=== PATIENT | male | born 1960 | race African-American/Black ===

== ENCOUNTER 2023-05-21 06:17 | Day surgery (SDC) | payer OTHER, SELFPAY ==
[2023-05-21] VITALS (12 sets, daily range): BP systolic 96–139; BP diastolic 59–97; PULSE 57–75; RESP 15–20; TEMP 36–36.5; O2SAT 100; BMI 25.0
--- NOTE | 2023-05-21 07:00 | DI.RAD_ITS ---
Exam(s) XR HIP LT IN OR EXAM: XR HIP LT IN OR CLINICAL HISTORY: Osteoarthritis of left hip. TECHNIQUE: 2D digital imaging was performed. COMPARISON: No exams were available for comparison FINDINGS: Intraoperative fluoroscopy provided for left hip arthroplasty. See procedure report for details. Total fluoroscopy time 49 seconds. IMPRESSION: Radiation exposure index/cumulative dose: Allenpascual= 5.2705 mGy DATA REPOSITORY: RADIATION DOSE DELIVERED:
--- NOTE | 2023-05-21 07:07 | W.PREOPHP ---
Assessment and Plan Assessment and plan (1) Osteoarthritis of left hip: Status: Acute Assessment and plan: Martínez is an active 62-year-old male who is here today for left hip replacement. Please see the previous office note for complete detailed history. Once again, I had a discussion in regards to surgical replacement of the hip. I reviewed the basic details of the rehabilitation after hip replacement. I also went over some of the potential complications. These include but are not limited to bleeding, infection, pain, stiffness, weakness, damage to nerves (especially the lateral femoral cutaneous nerve), damage to vessels, damage to muscle and tendon, fracture, leg length inequality, wound healing complications, instability, dislocation, and blood clot. Questions were answered. After a review of the presented information and risks, Martínez desired to proceed. History of Present Illness History of Present Illness Chief Complaint: Left hip pain Narrative: Martínez is a 62-year-old active male who has known arthritis of the left hip. Please the previous office note for complete detailed history. He presents today for his hip replacement. He has no major medical issues. He takes no routine medications. He denies any current chest pain or shortness of breath. He has had no issue with previous surgery or anesthesia. He is primary limited by lack of motion and pain within the left hip. He denies any significant limb length discrepancy. Review of Systems All systems reviewed & are unremarkable except as noted in HPI and below PFSH All Active Problems Osteoarthritis of left hip (Acute) Medical History Sleep apnea Surgical History Hx of colonoscopy Hx of exploratory laparotomy gastroenteritis 2018 Hx of foot surgery Social History Smoking/Tobacco Use Status: Never Smoking risk assessment performed?: Yes Alcohol Intake: current Alcohol Intake frequency: holidays/special occasions only Drug use: Never Substance use type: does not use Housing: house Do you feel safe at home: Yes Do you feel safe in your relationship?: Yes Meds Allergies and Home Medications Allergies Allergy/AdvReac Type Severity Reaction Status Date / Time No Known Allergies Allergy Verified 05/21/23 06:34 Home Medications Medication Instructions Recorded Confirmed Type Unknown [No Known Home Meds] 04/15/23 05/20/23 History Exam Resp Effort & Inspection: normal respiratory effort Auscultation: clear to auscultation bilaterally Cardio Rate: regular rate Rhythm: regular rhythm Results Imaging Imaging Studies: Previous x-rays of the left hip were reviewed. These demonstrate severe arthritis of the left hip with loss of joint space and large osteophyte surrounding the femoral acetabular joint.
[2023-05-21] MEDS: Acetaminophen 500 MG TAB 1000 MG PO (07:09)
[2023-05-21] MEDS: Celecoxib 200 MG CAP 400 MG PO (07:09)
[2023-05-21] MEDS: Lactated Ringers 1,000 ML 80 ML IV (07:20)
--- NOTE | 2023-05-21 07:22 | W.ANESPRE ---
General Info Date of Service Date Performed: 05/21/23 Height: 5 ft 10 in Weight: 79.1 kg Body Mass Index (BMI): 25.0 Surgical Procedure: Operation Date: 05/21/23 07:50 Proposed Procedure Side Surgeon p Hip Total Hip Anterior, ACTIS (High), 62/64 Cup Left Ryan Zacarias MD Actual Procedure Side Surgeon p Hip Total Hip Anterior, ACTIS (High), 62/64 Cup Left Ryan Zacarias MD Pre-Op Diagnosis Post-Op Diagnosis Osteoarthritis of left hip Meds Allergies and Home Medications Allergies Allergy/AdvReac Type Severity Reaction Status Date / Time No Known Allergies Allergy Verified 05/21/23 06:34 Home Medication Medication Instructions Recorded acetaminophen 500 mg tablet 1,000 mg PO Q8H PRN pain #90 tabs 05/21/23 aspirin 81 mg tablet,delayed 81 mg PO BID 30 days #60 tabs 05/21/23 release celecoxib 200 mg capsule (Celebrex) 200 mg PO BID PRN #60 caps 05/21/23 dexamethasone 4 mg tablet 4 mg PO DAILY #2 tabs 05/21/23 docusate sodium 100 mg capsule 100 mg PO BID #30 caps 05/21/23 (Colace) oxycodone 5 mg tablet 5 mg PO Q6H PRN #12 tabs 05/21/23 pantoprazole 40 mg tablet,delayed 40 mg PO DAILY #14 tabs 05/21/23 release Current Visit Medications: Current Medications Generic Name Dose Route Start Last Admin Trade Name Freq PRN Reason Stop Dose Admin Acetaminophen 1,000 mg 05/21/23 06:00 05/21/23 07:09 Acetaminophen 500 Mg Tab PO 05/21/23 16:00 1,000 mg PREOP PIO Administration Celecoxib 400 mg 05/21/23 06:00 05/21/23 07:09 Celecoxib 200 Mg Cap PO 05/21/23 16:00 400 mg PREOP PIO Administration Hydromorphone HCl 0.5 mg 05/21/23 07:14 Hydromorphone 2 Mg/Ml Syr IVP 06/20/23 07:13 Q2H PRN PRN Tranexamic Acid 1,000 mg/ 60 mls @ 360 mls/hr 05/21/23 06:00 Sodium Chloride IV 05/21/23 16:00 PREOP PIO Ringer's Solution 1,000 mls @ 80 mls/hr 05/21/23 06:00 IV 05/30/23 23:59 INFUSION PIO Cefazolin Sodium/Dextrose 2 gm in 50 mls @ 100 mls/hr 05/21/23 06:00 Ancef Duplex IVPB 05/21/23 23:59 PREOP PIO Cefazolin Sodium/Dextrose 1 gm in 50 mls @ 100 mls/hr 05/21/23 08:00 Ancef Duplex IVPB 05/22/23 00:29 Q8H PIO IV Miscellaneous Supplies 1 each 05/21/23 06:00 Iv Access IV 05/30/23 23:59 DIRECTED PIO Ondansetron HCl 4 mg 05/21/23 07:14 Ondansetron 4 Mg/2 Ml Vial IVP 06/20/23 07:13 Q6H PRN PRN Nausea Oxycodone HCl 0 mg 05/21/23 07:14 Oxycodone 5 Mg Tab PO 06/20/23 07:13 Q3H PRN PRN Pain Sodium Chloride 0 ml 05/21/23 06:00 Normal Saline Flush 10 Ml Syr IV 05/30/23 23:59 PRN PRN Sodium Chloride 0 ml 05/21/23 06:00 Normal Saline 10 Ml Vial IJ 05/30/23 23:59 DIRECTED PRN Sterile Water 0 ml 05/21/23 06:00 Water,Injection,Sterile 10 Ml Vial IJ 05/30/23 23:59 DIRECTED PRN PFSH Active Problems Active Problems: Problem Status Onset Code Osteoarthritis of left hip M16.12 Medical History Medical History Sleep apnea Surgical History Surgical History Hx of colonoscopy Hx of exploratory laparotomy gastroenteritis 2018 Hx of foot surgery Tobacco Smoking/Tobacco Use Status: Never Alcohol Alcohol Intake: current Alcohol intake frequency: holidays/special occasions only Substance Use Substance use: Never Substance use type: does not use Details: alcohol: t-2, half beer Vital Signs and Lab Results Vital Signs Most Recent Vital Signs in EMR: Most Recent Vital Signs Temp Pulse Resp BP Pulse Ox 36.5 C 71 15 128/97 H 100 05/21/23 07:00 05/21/23 07:00 08/22/23 07:00 05/21/23 07:00 05/21/23 07:00 Lab Results Blood Type / Crossmatch: No Data to Display Complete Blood Count: No Data to Display Complete Metabolic Panel: No Data to Display Liver Function Panel: No Data to Display Coagulation Panel: No Data to Display Cardiac Panel: No Data to Display Arterial Blood Gas: No Data to Display Venous Blood Gas: No Data to Display Pancreas Panel: No Data to Display Thyroid Panel: No Data to Display Infectious Disease: No Data to Display Blood Cultures: No Data to Display Toxicology Panel: No Data to Display Anesthesia Assessment and Plan Anesthesia History Personal History: No History of Anesthesia Complications Family History: No Family History of Anesthesia Complications Exercise Tolerance Exercise Tolerance: Metabolic Equivalents>4 Pertinent Negatives Pertinent Negatives: No Major Cardiovascular Symptoms or Complaints and No Major Pulmonary Symptoms or Complaints Cardiac & Pulmonary Exam Cardiac Exam: Normal S1/S2 Heart Sounds Pulmonary Exam: Clear Bilateral Breath Sounds Cardiac and Pulmonary Comment:: Sleep apnea, no device or machine. Not tolerated. Implantable Cardiac Device Does patient have a Pacemaker or an ICD?: No Airway Exam Known Difficult Airway: No Mallampati Class: 2 Mouth Opening: Normal (> 3cm) Thyromental Distance: Greater than 3 cm Neck Range of Motion: Full ROM Neck Circumference: Normal Teeth Condition: Normal Dentition ASA Classification ASA Score: ASA 2 Emergency Case?: No NPO Status NPO Status: NPO Clears >2 hours, Solids >8 hours Anesthesia Plan Resuscitation Status: Full Code Anesthesia Technique: Spinal Anesthesia Airway Planned: Natural Airway Monitors Used: Standard Monitors
[2023-05-21] MEDS: ceFAZolin 2 GM/50 ML BAG IVPB (08:28)
--- NOTE | 2023-05-21 10:25 | ROE_ITS ---
Date of service: 05/21/23 Time of Service: 10:00 Operative Note Operative Note DATE OF PROCEDURE: 05/21/23 PRE-OP DIAGNOSIS: Left Hip Osteoarthritis POST-OP DIAGNOSIS: same PROCEDURE: Left Anterior Total Hip Arthroplasty with Intraoperative Navigation SURGEON: Ryan Zacarias HEAD OF CYTOGENETICS: Odilia Henderson ANESTHESIA TYPE: Spinal Refer to Anesthesia Record ESTIMATED BLOOD LOSS: 50 PATHOLOGY: none sent TOURNIQUET TIME: 0 COMPLICATIONS: None Patient was transported to: PACU Patient's condition: stable Implants: 1. Depuy [place] Acetabular Component, 58mm 2. Depuy Acetabular Liner, [id number] 3. Depuy Actis High Collared Femoral Stem, Size 7 4. Depuy Altrx Ceramic Femoral Head, Size 36+5mm Indications: I have seen Martínez in clinic for symptoms of hip arthritis, confirmed with radiographic findings. He has exhausted nonoperative methods and was having significant limitations in daily function and desired better function and less pain. I discussed the technical details of a hip replacement. I explained the risks of the procedure to include, but not limited to, bleeding, infection, pain, stiffness, fracture, damage to nerves and vessels, damage to muscles and tendons, loosening, instability, leg length inequality, need for repeat procedure, blood clot and cardiopulmonary demise. Despite these risks, Martínez elected to proceed. Findings: There was significant signs of arthritis throughout the hip with large osteophytes about the femoral neck and acetabulum. Procedure Description: Martínez was greeted in the preoperative holding area where the correct side was identified and marked. The consent was reviewed with the patient and signed. The history and physical was updated. All questions were answered. She was taken back to the operating room. A spinal anesthestic was then administered. The feet were wrapped with cast padding and Coban and then placed into the boot liners and then into the boots. Care was taken to protect the skin and make sure the heels were fully down and the boots were stable. The patient was then positioned onto the HANA table. Both legs were held in a neutral position. SCDs were applied. The patient was then slid down onto a peroneal post. Prophylactic antibiotics in the form of Cefazolin were administered. 1g of Tranxemic Acid was given intravenously within 30 minutes of incision. The left leg was then prepped with Chloraprep and draped in a standard fashion. A second prep with Chloraprep was performed prior to placement of a shower-curtain type drape with Iodine impregnated skin p rotection. A timeout to confirm correct identity, side and site, procedure, allergies, anesthesia, and medical concerns was performed. An obliquely oriented incision was made starting lateral to the ASIS and running distal over the Tensor Fascia Annemarie (TFL) muscle belly toward the fibular head, approximately 10cm. The skin and soft tissue was dissected sharply, through Jhonathan?s fascia, and to the fascia of the TFL. With the fascia and superior border of the IT band identified, the fascia was incised with a new knife just above any perforators from the IT band. The TFL muscle belly was bluntly dissected away from the fascia and moved laterally. The fat between TFL and rectus was identified to ensure the dissection was not within the TFL. Blunt dissection created space between abductors and the capsule and retractor was placed over the lateral femoral neck. The fibers of the rectus femoris tendon were identified and these were freed from the anterior capsule. A second cobra retractor was placed around the medial femoral neck. The TFL was further retracted laterally to show the deep fascia. Careful dissection through this layer identified three main crossing vessels of the lateral femoral circumflex. These were cauterized in multiple locations and then cut without any noticeable bleeding. The TFL was further released bluntly from the deep fascia to expose anterior hip capsule and fat The Marcel orthopaedic retractor was then placed beneath the TFL and against sartorius and medial soft tissues to protect and retract the soft tissues. A T-capsulotomy was then performed starting at the superior lateral acetabulum and moving distally to the intertrochanteric ridge. These capsular flaps were tagged with a No. 1 Ethibond and elevated from within. The capsular flaps were released to the shoulder of the lateral neck and to the lesser trochanter to give excellent visualization of the proximal femur. A neck osteotomy was performed using an oscillating saw based on preoperative templates. This cut started in the shoulder and of the lateral neck and exited medially. The saw was at all times directed medially to avoid injury to the greater trochanter. Gross traction was applied to the leg and the osteotomy opened. The femoral head was removed with a corkscrew, making sure to protect the TFL on its exit. Traction was released after head removal. This was measured on the back table to determine the starting reamer size. Portions of the rectus obscuring visualization were minimally elevated off the superior acetabulum. An anterior retractor was placed over the anterior wall between capsule and labrum and attached to the Gripper retraction system. The femur was rotated to 90 degrees and medial capsule was fully released until the lesser trochanter was palpable and visible; the femur was returned to 30 degrees. A posterior retractor was placed similarly between capsule and labrum. This provided excellent visualization. The contents of the cotyloid fossa were removed with electrocautery and the labrum was removed with a knife. There was a notable floor osteophyte. There was significant chondromalacia of the superior acetabulum. Acetabular reaming began with a 54mm reamer. This first reaming was directed anterior to posterior and medial to get down to the true floor. This was inspected and reamed until the true floor was reached. The anterior retractor was then released and entry and exit was provided by traction on the capsular flaps. I then reamed sequentially up to a 58mm reamer where good fit was obtained. The larger reamers were oriented based on anatomical reference of the anterior and lateral varner to ensure proper abduction and anteversion. Positioning and size was confirmed with the fluoroscopy. A 58mm Depuy [place] acetabular component was selected. The acetabulum was reamed around the periphery with the selected acetabular size to prevent a rim fit. The deep tissues were irrigated. The acetabular component was then impacted in a position of about 40-45 degrees of abduction and 15-20 degrees of anteversion, using the patient?s anatomy as the ultimate landmark. Fluoroscopy was used to confirm this. There was excellent it support consultant of the acetabular component and the inserting handle was removed. Large posterior osteophytes were removed with a curved osteotome. The acetabular liner, Depuy [id number] polyethylene liner, was inserted and lined up with the tines of the acetabular component. There was no soft tissue interposition. The liner was then impacted into position and confirmed to be well-seated. A portion of the stefanie-articular cocktail was then injected around the acetabulum into the capsule and periosteum. This cocktail consisted of 123mg of Ropivacaine, 0.25mg of Epinephrine, 0.04mg of Clonidine, and 15mg of Ketorolac, diluted to 50cc. The leg was rotated to 120 degrees. Any remaining medial capsule was released until the lesser trochanter was easily palpable. A retractor was placed medially. The lateral capsule was further released into the shoulder to allow access to the greater trochanter. A Serra retractor was placed over the greater trochanter which allowed the trochanter to flip in front of the capsule for excellent exposure. The leg was brought down into maximal extension and 20 degrees of adduction while ensuring there was no impingement on the acetabulum. Any remnant capsule within the trochanter was released. Piriformis and obturator externis were identified and protected. There was excellent access to the proximal femur. The lateral neck remnant was removed with a rongeur. A blunt canal probe was used to identify the canal and trajectory for later broaching. A box osteotome initiated the broach course. A small curved rasp and a curved curette were used to work laterally. Broaching then began with a starter Actis broach. This was inserted manually around the trochanter and into the canal before mallet blows. The broach was seated to a few millimeters below the cut level based on the neck cut and the preoperative template. Sequential broaching was continued with the VT Siliconse pneumatic broaching device until a tight fit was obtained with good rotational control of the femur. A trial high neck was inserted along with a +5 trial head. The leg was brought out of extension and adduction and then reduced with traction and internal rotation. The leg was stable anteriorly in a position of 30 degrees of extension and 90 degrees of external rotation. Fluoroscopy was used to ensure there was no fracture and the stem was seated well. Leg lengths were checked with an AP pelvis and pelvic reference points. [employer] navigation system was used to confirm appropriate positioning and leg length and offset. Once content with the desired offset and leg lengths, the leg was brought back into extension, external rotation and adduction. The periosteum and surrounding tissue was injected with remaining portion of the stefanie-articular cocktail. The proximal femur was irrigated as well as the deep tissues. The Depuy Actis High collared stem, size 7, was then manually inserted into the proximal femur making sure to control rotation. It was then malleted into position with light blows, giving breaks to allow bone expansion and decrease risk of fracture. The selected Depuy Altrx Ceramic Head, size 36+5mm, was then placed onto the clean and dry trunnion and secured with impaction onto the tapered fit. The leg was brought back out of extension and adduction and reduced with traction and internal rotation. Stability was confirmed with no shuck at 90 degrees of external rotation and 30 degrees of extension. No impingement through range of motion arc. Final x-ray images were obtained with fluoroscopy to confirm adequate positioning and no intraoperative fracture. The deep tissues were thoroughly irrigated with Surgiphor, betadine solution. This was allowed to sit in the wound for 3 minutes before being thoroughly irrigated out with normal saline. The capsule was then reapproximated with the previously placed Ethibond sutures. The TFL fascia was finally closed with a No. 2 Stratafix, barbed suture. Deep tissues were then reapproximated with 0 Vicryl and a running 2-0 Vicryl. The skin was closed with a running 4-0 Monocryl in a subcuticular fashion. This was reinforced with skin glue. A Mepilex silver dressing was applied. At the end of the case, all counts were correct. Martínez was transferred to the hospital bed without difficulty and suffering no apparent complication. He has a good prognosis. Physical therapy will start today and without restrictions, weight-bearing as tolerated. Aspirin 81mg BID will be used for DVT prophylaxis.
--- NOTE | 2023-05-21 10:56 | DSE_ITS ---
Date of service: 05/21/23 Time of Service: 10:56 DS: Diagnosis Discharge Diagnosis (1) Osteoarthritis of left hip: Status: Acute Discharge Plan Disposition Patient Disposition: Home Condition: Good Discharge Details Reason For Visit: Left hip DJD Attending Provider: Ryan Zacarias Home Meds and New Rx's Prescriptions: New acetaminophen 500 mg tablet 1,000 mg PO Q8H PRN Qty: 90 0RF Rx Instructions: Take two tablets up to every 8 hours as needed for pain aspirin 81 mg tablet,delayed release (DR/EC) 81 mg PO BID 30 Days Qty: 60 0RF celecoxib [Celebrex] 200 mg capsule 200 mg PO BID PRNQty: 60 0RF Rx Instructions: Take one tablet twice daily for pain and inflammation docusate sodium [Colace] 100 mg capsule 100 mg PO BID Qty: 30 0RF pantoprazole 40 mg tablet,delayed release (DR/EC) 40 mg PO DAILY Qty: 14 0RF dexamethasone 4 mg tablet 4 mg PO DAILY Qty: 2 0RF Rx Instructions: Take one tablet once daily for two days oxycodone 5 mg tablet 5 mg PO Q6H PRNQty: 12 0RF Rx Instructions: Take one tablet up to every 6 hours as needed for severe postoperative pain Discharge Instructions Additional Instructions: Total Hip Discharge Instructions Activity: The most important activity is to walk. You should try to take short walks a few times a day. You have no restrictions on movement or positioning, but do not try to force what you do. You will find some stiffness and weakness with hip flexion (lifting your knee). Do not try to strengthen this too early, continue to practice walking and stairs and this will come. - Outpatient physical therapy can be helpful to help return you to a normal gait and improve your flexibility and strength. This can start around 2 weeks. For some patients, it?s not necessary. Usually this is determined at the time of discharge or at the first post-operative visit. - You should wear the ANY hose on both legs for 2 weeks. Dressing: Keep the surgical dressing in place for at least one week. After the first week it may be removed and replace with light gauze and tape or nothing. It may get wet after 3 days but avoid soaking the dressing. If it gets wet, just lightly pat dry. It is important to always keep some gauze between skin folds, especially when you are sitting. Spend some time with the wound exposed when you are lying flat as the incision does wrinkle onto itself. Medications: - You should take Tylenol and an anti-inflammatory Celebrex as your primary pain control medications. If the Celebrex is too expensive or not covered, please call the office for another alternative (Advil/Ibuprofen or Naproxen/Aleve). - You have been prescribed a stronger pain medication Oxycodone for breakthrough pain, take as needed as prescribed. - You have also been prescribed a stomach acid reduction agent Pantoprozole to h elp reduce stomach acid and reflux. - You have also been prescribed Decadron to help with post-operative nausea and pain. You will take this for two days starting tomorrow. - You will be taking Aspirin 81mg twice a day for DVT prevention unless instructed otherwise. - If you have constipation you should take Colace (which has been prescribed) or Miralax (which is available [id number]). It takes most people 3-4 days to have a bowel movement. Follow-up: 2 weeks If you have any acute concerns or questions, please do not hesitate to contact the office at [phone]. You may contact Dr. Zacarias with any questions after hours through the hospital at [phone] or on his cell phone at [phone]. Stand Alone Forms: Anesthesia Discharge InstChauncey, Robyn Brothers ([facility]) Referrals: Ryan Zacarias MD [ [facility] STAFF PHYSICIAN] - Equipment/Supplies: Walker Activity:: Activity as Tolerated Remove Dressings/Wound Care:: Do Not Remove Shower/Bathe:: Cover Diet:: As Tolerated Discharge Orders Discharge Orders: Discharge Order (Routine); Ordered 05/21/23 Ordered By: Ryan Zacarias DS: Summary Time Spent with Patient providing and/or coordinating discharge services: Less than 30 minutes Status at Discharge Functional status at discharge: uses cane/walker Overall status at discharge: patient is progressing back to baseline Mental Status: mental status grossly normal Speech and Movement: speech and movement normal Mood: congruent mood Affect: normal affect Exam Psych Mental Status: mental status grossly normal Speech and Movement: speech and movement normal Mood: congruent mood Affect: normal affect DS: Data Vitals/I&O Vitals and I&O: Vital Signs Temperature 97.7 F 05/21/23 07:00 Pulse 71 05/21/23 07:00 Pulse Rhythm Regular 05/21/23 07:00 Respiratory Rate 15 05/21/23 07:00 Respiratory Depth Normal 05/21/23 07:00 Blood Pressure 128/97 H 05/21/23 07:00 Pulse Oximetry 100 05/21/23 07:00 Oxygen Delivery Method Room Air 05/21/23 07:00 Oxygen Flow Rate 0 05/21/23 07:00 Pain Level 8 05/21/23 07:00 Intake & Output 05/20/23 05/20/23 05/21/23 11:59 23:59 11:59 Weight 172 lb 0.004 oz 172 lb 0.004 oz 174 lb 6.17 oz PFSH All Active Problems Osteoarthritis of left hip (Acute) Medical History Sleep apnea Surgical History Hx of colonoscopy Hx of exploratory laparotomy gastroenteritis 2018 Hx of foot surgery Social History Smoking/Tobacco Use Status: Never Smoking risk assessment performed?: Yes Alcohol Intake: current Alcohol Intake frequency: holidays/special occasions only Drug use: Never Substance use type: does not use Details: alcohol: t-2, half beer Housing: house Do you feel safe at home: Yes Do you feel safe in your relationship?: Yes Additional Social history: unable to assess privately Time Spent with Patient Time Spent with Patient: <45 minutes Time was spent: preparing to see the patient(eg.review tests), obtaining and/or reviewing separately otained hiistory and counseling the patient
--- NOTE | 2023-05-21 12:51 | IN_ITS ---
PT Notes Visit Reasons: Left hip DJD Physical Therapy Day Surgery Initial Evaluation Date: 05/21/2023 Referring Doctor: LIBRA Jhaveri PT Orders: PT CONSULT: S/P Ortho surgery Precautions: WBAT on left LE with AD. Patient Profile/Admitting Diagnosis: Martínez is a 62-year-old male with degenerative joint disease of the left hip and is status post left total hip arthroplasty on postoperative day 0. PMHX: All Active Problems? Osteoarthritis of left hip (Acute) Medical History? Sleep apnea Surgical History? Hx of colonoscopy Hx of exploratory laparotomy gastroenteritis 2018 Hx of foot surgery Social History/Home Situation: Lives with Tracey in a private home with 3 steps to enter with rails on both sides. Bedroom is on the second floor with a flight of steps with a rail on one side and a wall on the other side. Independent with all aspects of ADLs prior to surgery. Equipment Owned/DME: Bilateral axillary crutches Subjective: Reports 1-2/10 pain in the L hip. Denies headache, chest pain, and lightheadedness throughout. Objective: General Observation: Resting in bed. Mepilex Ag over surgical incision. TEDS to be legs. Mental Status: Alert and oriented x4 Pain: As above ROM: Right Lower Extremity: Hip flexion WFL. Hip abduction WFL. Knee flexion WFL. Ankle dorsiflexion WFL. Ankle plantarflexion WFL. Left Lower Extremity: Hip flexion WFL. Hip abduction WFL. Knee flexion WFL. Ankle dorsiflexion WFL. Ankle plantarflexion WFL. Strength: Right Lower Extremity: Hip flexors 5/5. Hip abductors 5/5. Knee flexors 5/5. Knee extensors 5/5. Ankle dorsiflexors 5/5. Ankle plantarflexors 5/5. Left Lower Extremity:Hip flexors 4/5. Hip abductors 4/5. Knee flexors 4/5. Knee extensors 4/5. Ankle dorsiflexors 5/5. Ankle plantarflexors 5/5. Sensation: Intact as to pain and light pressure in bilateral lower extremities Bed Mobility/Transfers: Supine to sit independent Sit to stand supervision Stand to sit supervision Bed to chair standby assist Gait: Tolerated level surface ambulation of 150 feet using front wheeled walker with supervision. Minimal sway to R with reaching forward but no LOB. Able to manage bilateral axillary crutches for 50 feet with standby assist. Balance: Static Sitting: Normal Dynamic Sitting: Normal Static Standing: Fair Dynamic Standing: Fair Special Tests: Mobility Limitations Standardized Measure [facility] 6 clicks Basic Mobility Inpatient Short Form: Raw Score: 24 CMS Score: 0% deficit Informed Consent/Education: Patient instructed in purpose of PT consult. Packet containing [facility] exercise protocol has been given to patient. Education and training on initial set of exercises that can be done at home have been completed with patient. Access Code: [email or web address] URL: [email or web address] Date: 05/21/2023 Prepared by: Molly Moses Exercises - Gluteal Sets - 1 x daily - 7 x weekly - 1 sets - 10 reps - 5 hold - Supine Heel Slide - 1 x daily - 7 x weekly - 1 sets - 10 reps - 5 hold - Supine Ankle Pumps - 1 x daily - 7 x weekly - 1 sets - 10 reps - 5 hold - Seated March - 1 x daily - 7 x weekly - 1 sets - 10 reps - 5 hold - Seated Long Arc Quad - 1 x daily - 7 x weekly - 1 sets - 10 reps - 5 hold Assessment: Martínez requires the use of a front wheel walker to maximize independence and reduce fall risk. Patient presents with clinical signs and symptoms consistent with current/admitting diagnoses that have resulted to mobility limitations, gait instability, generalized weakness, and impairment of motor control as demonstrated by the following impairment level findings: 1. Decreased strength to left hip major muscle groups 2. Impaired standing balance Impairments are contributing to the following functional limitations: 1. Inability to safely ambulate without assistive device 2. Increase completion time for mobility ADL performance 3. Increased fall risk Patient is assessed as a 60659 moderate complexity based on the following: History: 62-year-old male with impairment level findings, functional limitations, and past medical history as indicated above Examination: Demonstrable impairment in strength, balance, and mobility level with underlying impairments and functional limitations as documented above Presentation: Evolving Decision Makin moderate complexity Goals: N/A. PT evaluation and 1-2 treatment sessions only for functional mobility training using recommended AD and for HEP instruction. Plan of Care/Treatment Plan: N/A. PT evaluation and 1-2 treatment session only for functional mobility training using recommended AD and for HEP instruction. DISCHARGE RECOMMENDATIONS: Home when medically cleared by orthopedic surgeon. Recommend outpatient PT services in order to optimize functional mobility outcomes and facilitate return to independent community ambulation without an assistive device. TREATMENT CODE/TIME: 75729 x 20 minutes (1 unit), 75147 x 16 minutes (1 unit) beginning at 12:13 PM. Thank you for the opportunity to participate in the care of this patient. Molly Moses PT, DPT, CLT [facility] [place], [place]
--- NOTE | 2023-05-21 12:57 | W.ANESPOSTOP ---
Postoperative Evaluation Date, Time and Location Date Performed: 05/21/23 Time Performed: 12:13 Patient Location: Day Surgery Unit Vital Signs Most Recent Imported Vital Signs: Most Recent Vital Signs Temp Pulse Resp BP Pulse Ox 36.1 C L 70 16 122/85 100 05/21/23 12:03 05/21/23 12:03 05/21/23 12:03 05/21/23 12:03 05/21/23 12:03 Pain Score Most Recent Pain Score: Most Recent Pain Score Pain Level 3 05/21/23 12:03 Assessment Mental Status: Awake (Alert & Oriented to Patient Baseline) Airway and Respiratory Function: Patent airway with normal (patient baseline) respiratory exam Cardiovascular Function: Hemodynamically Stable Hydration Status: Adequately Hydrated Nausea & Vomiting: No Nausea or Vomiting Pain: Pain is tolerable per patient Peripheral Nerve Block: Patient did not receive a nerve block
[2023-05-21] MEDS: oxyCODONE 5 MG TAB PO (13:02)
== END 2023-05-21 14:10 | disposition home or self-care (01) ==
PROVIDERS: Visit Provider Student in an Organized Health Care Education/Training Program
PROC: (CPT 27130; principal; 2023-05-21 07:30)
DX: M16.12 Unilateral primary osteoarthritis, left hip (principal)
CPT/HCPCS: 27130; 20985; 97162; 97530; 73501; J0690; J1100; J2001; J2250; J2405

== ENCOUNTER 2023-06-07 11:37 | Outpatient (CLI) | payer OTHER, SELFPAY ==
--- NOTE | 2023-06-07 11:15 | DI.RAD_ITS ---
Exam(s) XR HIP LT COMPLETE AP PELVIS EXAM: XR HIP LT COMPLETE AP PELVIS CLINICAL HISTORY: f/u L PARISH. TECHNIQUE: 2D digital imaging was performed of the left hip. Two views were obtained. AP pelvis an d lateral left hip views were obtained. COMPARISON: DX XR, HIP, UNILATERAL, LEFT from 03/01/2023 XA XR HIP LT IN OR from 05/21/2023 FINDINGS: BONES: There are stable post operative changes present. No fracture or dislocation. JOINTS: The orthopedic hardware is in good position. No evidence of hardware loosening. SOFT TISSUE: Normal. IMPRESSION: Stable postoperative changes of a left total hip replacement. DATA REPOSITORY: RADIATION DOSE DELIVERED:
== END 2023-06-07 11:38 | disposition home or self-care (01) ==
LOC: DIORS 11:37
PROVIDERS: Visit Provider Student in an Organized Health Care Education/Training Program
DX: Z96.642 Presence of left artificial hip joint (principal); Z47.1 Aftercare following joint replacement surgery
CPT/HCPCS: 73502

== ENCOUNTER 2024-05-22 11:05 | Outpatient (CLI) | payer OTHER, SELFPAY ==
--- NOTE | 2024-05-22 11:00 | DI.RAD_ITS ---
Exam(s) XR HIP LT AP LAT ONLY EXAM: XR HIP LT AP LAT ONLY CLINICAL HISTORY: L THR. TECHNIQUE: 2D digital imaging was performed. Two views. COMPARISON: CR XR HIP LT COMPLETE AP PELVIS from 06/07/2023 FINDINGS: BONES: No acute fracture is present. No bony destructive lesion is seen. Stable appearance of left hip prosthesis. JOINTS: No dislocation present. SOFT TISSUE: Normal. IMPRESSION: Stable appearance of left hip prosthesis. DATA REPOSITORY: RADIATION DOSE DELIVERED:
== END 2024-05-22 11:06 | disposition home or self-care (01) ==
LOC: DIORS 11:05
PROVIDERS: Visit Provider Physician Assistant
DX: Z96.642 Presence of left artificial hip joint (principal); Z47.1 Aftercare following joint replacement surgery
CPT/HCPCS: 73502